=== PATIENT | female | born 1975 | race Caucasian/White ===

== ENCOUNTER 2022-05-03 08:09 | Day surgery (SDC) | payer BC ==
[2022-05-02 11:43] VITALS: BMI 35.9
[2022-05-03] MEDS ORDERED: PROPOFOL 40 ML ONE (10:23)
[2022-05-03] MEDS ORDERED: PROPOFOL 20 ML ONE (10:43)
== END 2022-05-03 11:24 | disposition home or self-care (01) ==
LOC: CSHSDC 08:09
PROVIDERS: ATTEND Surgery
PROC: 0DJD8ZZ Inspection of Lower Intestinal Tract, Via Natural or Artificial Opening Endoscopic (ICD-10-PCS; principal; 2022-05-03)
DX: Z12.11 Encounter for screening for malignant neoplasm of colon (principal); K64.1 Second degree hemorrhoids; M62.08 Separation of muscle (nontraumatic), other site; F41.9 Anxiety disorder, unspecified; J45.909 Unspecified asthma, uncomplicated; E78.00 Pure hypercholesterolemia, unspecified; F32.A Depression, unspecified; F42.9 Obsessive-compulsive disorder, unspecified; F17.210 Nicotine dependence, cigarettes, uncomplicated; Z88.0 Allergy status to penicillin; Z88.1 Allergy status to other antibiotic agents; Z79.899 Other long term (current) drug therapy
CPT/HCPCS: J2704

== ENCOUNTER 2023-03-12 15:16 | Outpatient (CLI) | payer BC | END 2023-03-12 15:17 | disposition home or self-care (01) | LOC: CSHULT 15:16 | PROVIDERS: ATTEND Student in an Organized Health Care Education/Training Program | DX: N92.6 Irregular menstruation, unspecified (principal); R93.89 Abnormal findings on diagnostic imaging of other specified body structures | CPT/HCPCS: 76856 ==

== ENCOUNTER 2023-07-30 03:54 | Emergency (ER) | payer BC, OTHER ==
[2023-07-30] MEDS ORDERED: Sulfameth/Trimethoprim DS 800-160mg TAB ONE (04:14)
[2023-07-30] MEDS ORDERED: traMADol HCl 50 MG TAB ONE (04:16)
== END 2023-07-30 04:22 | disposition home or self-care (01) ==
LOC: CSHERS 03:54
DX: L03.115 Cellulitis of right lower limb (principal); F17.200 Nicotine dependence, unspecified, uncomplicated
CPT/HCPCS: 99283

== ENCOUNTER 2023-08-18 15:45 | Outpatient (CLI) | payer OTHER | END 2023-08-18 15:46 | disposition home or self-care (01) | LOC: CSHMAMMO 15:45 | PROVIDERS: ATTEND Student in an Organized Health Care Education/Training Program | DX: Z12.31 Encounter for screening mammogram for malignant neoplasm of breast (principal); Z80.3 Family history of malignant neoplasm of breast | CPT/HCPCS: 77063; 77067 ==

== ENCOUNTER 2024-11-12 14:43 | Outpatient (CLI) | payer OTHER | END 2024-11-12 14:44 | disposition home or self-care (01) | LOC: CSHMAMMO 14:43 | PROVIDERS: ATTEND Student in an Organized Health Care Education/Training Program | DX: Z12.31 Encounter for screening mammogram for malignant neoplasm of breast (principal); Z80.3 Family history of malignant neoplasm of breast | CPT/HCPCS: 77063; 77067 ==

== ENCOUNTER 2024-11-15 09:38 | Outpatient (CLI) | payer OTHER ==
[2024-11-15] MEDS ORDERED: Iopamidol 370 76% 100 ML VIAL ONE (13:47)
== END 2024-11-15 09:39 | disposition home or self-care (01) ==
LOC: CSHCT 09:38
PROVIDERS: ATTEND Student in an Organized Health Care Education/Training Program
DX: E21.0 Primary hyperparathyroidism (principal)
CPT/HCPCS: 70491